=== PATIENT | male | born 1950 | race Caucasian/White ===

== ENCOUNTER → 2022-11-29 | Outpatient (CLI) | payer MEDICARE | END | disposition home or self-care (01) | LOC: SHCH 14:53 | PROVIDERS: ATTEND Internal Medicine Cardiovascular Disease | DX: R00.1 Bradycardia, unspecified (principal) | CPT/HCPCS: 93306 ==

== ENCOUNTER 2024-04-13 11:29 | Emergency (ER) | payer MEDICARE ==
[~2024-04-13] VITALS: Ht 182.9 cm; Wt 72.1 kg
[2024-04-13 12:15] LABS: BASOPHILS # (AUTO) 0.05 K/uL (0.00-0.20); BASOPHILS % (AUTO) 0.6 % (0.0-5.0); EOSINOPHILS # (AUTO) 0.67 K/uL (0.00-0.70); EOSINOPHILS % (AUTO) 8.6 % (0.0-8.0); HEMATOCRIT 47.1 % (42-54); IMMATURE GRANULOCYTE ABSOLUTE 0.06 K/uL (0-1); LYMPHOCYTES # (AUTO) 1.8 K/uL (1.0-4.8); MEAN CORPUSCULAR HEMOGLOBIN 29.8 pg (27.0-33.0); MEAN CORPUSCULAR HGB CONC 35.7 g/dL (32.0-36.0); MEAN CORPUSCULAR VOLUME 83.5 fL (79-99); MONOCYTES # (AUTO) 0.7 K/uL (0.1-1.0); MONOCYTES % (AUTO) 8.5 % (3.0-13.0); NEUTROPHILS # (AUTO) 4.6 K/uL (1.8-7.7); NEUTROPHILS % (AUTO) 58.5 % (40.0-77.0); PLATELET COUNT (AUTO) 163 K/uL (130-400); RED BLOOD CELL COUNT(AUTO) 5.64 MIL/uL (4.50-6.20); RED CELL DISTRIBUTION WIDTH 12.2 % (11.0-15.5); WHITE BLOOD COUNT (AUTO) 7.8 K/uL (4.8-10.8)
[2024-04-13 12:35] LABS: CREATININE 1.5 mg/dL (0.5-1.3); POTASSIUM 3.9 mmol/L (3.5-5.1)
[2024-04-13 12:43] LABS: APPEARANCE,URINE CLEAR (CLEAR); BILIRUBIN,URINE NEGATIVE (NEGATIVE); COLOR,URINE COLORLESS (YELLOW); GLUCOSE, URINE (UA) >=1000 mg/dL (NEGATIVE); KETONES,URINE NEGATIVE (NEGATIVE); LEUKOCYTE ESTERASE ,URINE NEGATIVE Leu/uL (NEGATIVE); NITRATE,URINE NEGATIVE (NEGATIVE); OCCULT BLOOD,URINE NEGATIVE (NEGATIVE); PROTEIN,URINE NEGATIVE (NEGATIVE); UROBILINOGEN,URINE 0.2 mg/dL (0.2-1.0)
[2024-04-13 12:44] LABS: ADD UA MICROSCOPIC YES
[2024-04-13 12:45] LABS: RBC,URINE 0-1 /HPF (0-1); WBC,URINE 0-1 /HPF (0-1)
[2024-04-13 13:21] VITALS: BP 137/74; PULSE 52; RESP 17; O2SAT 99
== END 2024-04-13 13:27 | disposition home or self-care (01) ==
LOC: EDH 11:29
DX: R53.1 Weakness (principal); R53.83 Other fatigue; I10 Essential (primary) hypertension; E11.9 Type 2 diabetes mellitus without complications; Z98.890 Other specified postprocedural states
CPT/HCPCS: 36415; 71045; 80048; 81001; 82550; 84484; 85025

== ENCOUNTER 2024-04-21 15:36 | Emergency (ER) | payer MEDICARE ==
[~2024-04-21] VITALS: Ht 182.9 cm; Wt 76.7 kg
[2024-04-21 16:48] LABS: BASOPHILS # (AUTO) 0.05 K/uL (0.00-0.20); BASOPHILS % (AUTO) 0.7 % (0.0-5.0); EOSINOPHILS # (AUTO) 0.76 K/uL (0.00-0.70); EOSINOPHILS % (AUTO) 10.4 % (0.0-8.0); IMMATURE GRANULOCYTE ABSOLUTE 0.04 K/uL (0-1); LYMPHOCYTES # (AUTO) 2.1 K/uL (1.0-4.8); LYMPHOCYTES % (AUTO) 28.1 % (21.0-51.0); MEAN CORPUSCULAR HGB CONC 35.1 g/dL (32.0-36.0); MEAN CORPUSCULAR VOLUME 85.4 fL (79-99); MONOCYTES # (AUTO) 0.7 K/uL (0.1-1.0); MONOCYTES % (AUTO) 9.9 % (3.0-13.0); NEUTROPHILS # (AUTO) 3.7 K/uL (1.8-7.7); NEUTROPHILS % (AUTO) 50.4 % (40.0-77.0); PLATELET COUNT (AUTO) 142 K/uL (130-400); RED CELL DISTRIBUTION WIDTH 12.1 % (11.0-15.5); WHITE BLOOD COUNT (AUTO) 7.3 K/uL (4.8-10.8)
[2024-04-21 17:13] LABS: CREATININE 1.4 mg/dL (0.5-1.3); POTASSIUM 3.6 mmol/L (3.5-5.1)
[2024-04-21 17:19] LABS: B-TYPE NATRIURETIC PEPTIDE 13 pg/mL (0-100)
[2024-04-21 17:27] LABS: ALBUMIN 3.5 g/dL (3.5-5.0); BILIRUBIN,DIRECT 0.1 mg/dL (0.0-0.3); BILIRUBIN,TOTAL 0.4 mg/dL (0.2-1.0); TOTAL PROTEIN, SERUM 6.2 g/dL (6.0-8.3)
[2024-04-21 17:43] VITALS: BP 175/80; PULSE 48; RESP 16; O2SAT 98
== END 2024-04-21 17:48 | disposition home or self-care (01) ==
LOC: EDH 15:36
DX: R00.1 Bradycardia, unspecified (principal); I10 Essential (primary) hypertension; E11.9 Type 2 diabetes mellitus without complications; E78.00 Pure hypercholesterolemia, unspecified; Z90.89 Acquired absence of other organs
CPT/HCPCS: 36415; 71045; 80048; 80076; 83880; 84484; 85025; 93005

== ENCOUNTER 2024-09-07 10:26 | Observation (INO) | payer MEDICARE ==
[~2024-09-07] VITALS: Ht 182.9 cm; Wt 75.3 kg
[2024-09-07 10:50] LABS: BASOPHILS # (AUTO) 0.05 K/uL (0.00-0.20); BASOPHILS % (AUTO) 0.6 % (0.0-5.0); EOSINOPHILS # (AUTO) 0.61 K/uL (0.00-0.70); EOSINOPHILS % (AUTO) 6.9 % (0.0-8.0); HEMATOCRIT 42.8 % (42-54); IMMATURE GRANULOCYTE ABSOLUTE 0.04 K/uL (0-1); LYMPHOCYTES # (AUTO) 1.5 K/uL (1.0-4.8); LYMPHOCYTES % (AUTO) 16.8 % (21.0-51.0); MEAN CORPUSCULAR HEMOGLOBIN 30.5 pg (27.0-33.0); MEAN CORPUSCULAR HGB CONC 34.3 g/dL (32.0-36.0); MEAN CORPUSCULAR VOLUME 88.8 fL (79-99); MONOCYTES # (AUTO) 0.8 K/uL (0.1-1.0); MONOCYTES % (AUTO) 8.5 % (3.0-13.0); NEUTROPHILS # (AUTO) 5.9 K/uL (1.8-7.7); NEUTROPHILS % (AUTO) 66.7 % (40.0-77.0); PLATELET COUNT (AUTO) 143 K/uL (130-400); RED BLOOD CELL COUNT(AUTO) 4.82 MIL/uL (4.50-6.20); WHITE BLOOD COUNT (AUTO) 8.8 K/uL (4.8-10.8)
--- NOTE | 2024-09-07 10:54 | EKG ---
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
[2024-09-07 10:59] LABS: CREATININE 1.6 mg/dL (0.5-1.3); POTASSIUM 3.6 mmol/L (3.5-5.1)
--- NOTE | 2024-09-07 11:14 | ERN ---
General Chief Complaint: Dizzy/Light Headed Stated Complaint: SENT BY DR. BAIN Time Seen by MD: 10:26 History of Present Illness Initial Comments 74-year-old male presents for dizziness and lightheadedness. He reports he has been feeling it for awhile (months) but it has been worsening recently. He does feel mild dyspnea. No chest pain. He has had no focal neurologic deficits. He was going to have a stress test and carotid ultrasounds done by Dr. Lawson as an outpatient, but has had difficulty coordinating these. No fevers, productive cough, or other systemic symptom. Patient does have a history of bradycardia. He has discuss getting a pacemaker with Dr. Lawson. They are pending a stress test currently. Medical history: Diabetes, hypertension, dyslipidemia, seizure disorder, Alzheimer's disease Allergies: Coded Allergies: No Known Drug Allergies (Unverified Allergy, Unknown, 06/11/22) Past Medical History Past Medical History: CAD, Diabetes-Type II, High Cholesterol, Heart Disease, Hypertension Medical History Other: CKD STAGE 3, CHRONIC BRADYCARDIA Past Surgical History: Other Surgical History Other: BILATERAL SHOULDER Social History Social History: Other ROS Dictation CONSTITUTIONAL: No chills, no fever, no weakness, no diaphoresis, no malaise. HEAD/FACE: No signs of trauma. EENT: No eye pain, no blurred vision, no tearing, no double vision, no ear pain, no ear discharge, no nose pain, no nasal congestion, no throat pain, no throat swelling, no mouth pain. RESPIRATORY: Mild dyspnea on exertion CARDIOVASCULAR: No chest pain, no edema, no palpitations, no syncope. GASTROINTESTINAL/ABDOMINAL: No abdominal pain, no constipation, no diarrhea, no nausea, no vomiting. GENITOURINARY: No abnormal discharge, no dysuria, no frequent urination, no hematuria. No complaints of pain in the genitals. MUSCULOSKELETAL: No back pain, no gout, no joint pain, no joint swelling, no muscle pain, no muscle stiffness, no neck pain. INTEGUMENTARY: No change in color, no change in hair/nails, no dryness, no lesion, no lumps, no rash. NEUROLOGICAL/PSYCH: Dizziness and lightheadedness HEMATOLOGIC/LYMPHATIC: Not anemic, no history of blood clots, no apparent bleeding, no bruising, glands not swollen. All Systems Negative, Except as Noted. Physical Exam Physical Exam Dictation VITAL SIGNS: Reviewed. GENERAL APPEARANCE: Alert, oriented x3, no acute distress HEAD AND FACE: Non-traumatic. EYES: PERRL, pink conjunctivas, eyelid no trauma, anterior chamber clear. EARS: Pinnas intact and no signs of trauma or erythema. Ear canals clear and no discharge. TMs no erythema. NOSE: No discharge, no bleeding. OROPHARYNX: Mouth normal, teeth no caries, tongue pink. Pharynx clear, no erythema. Tonsils no exudates, no abscesses noted. Mucous membrane moist. NECK: Supple, non-tender, no thyromegaly, no masses, no JVD, no bruits. BREAST: Deferred. CHEST: No tenderness, no crepitus, no paradoxical movement, no retractions. LUNGS: Clear, well-ventilated, symmetric, no rales, no wheezing, no rhonchi, no stridor, good breath sounds bilaterally. HEART: Regular rate, regular rhythm, no murmur, no gallops. VASCULAR: No peripheral edema. ABDOMEN: Soft, positive bowel sounds, nondistended, no guarding, nontender, no rebound, no masses no hepatomegaly, no splenomegaly, no Elena's sign, no hernias. RECTAL: Deferred. GENITAL: Deferred. NEUROLOGICAL: Normal speech, gross motor function intact, gross sensory function intact. MUSCULOSKELETAL: Neck nontender, full range of motion, back nontender, full range of motion. EXTREMITIES: Nontender, full range of motion. SKIN: Color pink, dry, no turgor, no rash, no lacerations, no abrasions, no contusions. LYMPHATICS: Deferred. Results Laboratory and Microbiology Lab and Micro Result Laboratory Tests Test 09/07/24 10:44 White Blood Count 8.8 K/uL (4.8-10.8) Red Blood Count 4.82 MIL/uL (4.50-6.20) Hemoglobin 14.7 g/dL (14.0-18.0) Hematocrit 42.8 % (42-54) Mean Corpuscular Volume 88.8 fL (79-99) Mean Corpuscular Hemoglobin 30.5 pg (27.0-33.0) Mean Corpuscular Hemoglobin Concent 34.3 g/dL (32.0-36.0) Red Cell Distribution Width 12.0 % (11.0-15.5) Platelet Count 143 K/uL (130-400) Mean Platelet Volume 10.3 fL (7.5-10.5) Immature Granulocyte % (Auto) 0.5 % (0-1) Neutrophils (%) (Auto) 66.7 % (40.0-77.0) Lymphocytes (%) (Auto) 16.8 % (21.0-51.0) L Monocytes (%) (Auto) 8.5 % (3.0-13.0) Eosinophils (%) (Auto) 6.9 % (0.0-8.0) Basophils (%) (Auto) 0.6 % (0.0-5.0) Neutrophils # (Auto) 5.9 K/uL (1.8-7.7) Lymphocytes # (Auto) 1.5 K/uL (1.0-4.8) Monocytes # (Auto) 0.8 K/uL (0.1-1.0) Eosinophils # (Auto) 0.61 K/uL (0.00-0.70) Basophils # (Auto) 0.05 K/uL (0.00-0.20) Absolute Immature Granulocyte (auto 0.04 K/uL (0-1) Nucleated Red Blood Cells 0.0 % (0.0-0.19) Sodium Level 144 mmol/L (136-145) Potassium Level 3.6 mmol/L (3.5-5.1) Chloride Level 107 mmol/L (101-111) Carbon Dioxide Level 32 mmol/L (21-32) Blood Urea Nitrogen 19 mg/dL (7-18) H Creatinine 1.6 mg/dL (0.5-1.3) H Glomerular Filtration Rate Calc 44 mL/min (>90) Random Glucose 144 mg/dL (70-105) H Total Calcium 8.9 mg/dL (8.5-10.1) Total Creatine Kinase 280 U/L (21-232) #H Troponin I High Sensitivity 10 ng/L (4-75) MDM CC: Dizziness and lightheadedness Historian: Patient provided some history, but helped since the patient has early Alzheimer's disease Comorbidities: Advanced age, diabetes, hypertension, dyslipidemia, seizure disorder, Alzheimer's disease Initial concern for ACS, arrhythmia, stroke, dehydration, electrolyte abnormality, other. EKG: sinus bradycardia, rate 43, normal axis, good RWP, intervals stable, LVH, no STEMI, interpreted by me. Vital signs: Bradycardic heart rate of 42. Otherwise stable. CBC: Normal. Troponin normal. BNP normal. Electrolytes stable. Electrolytes stable. Creatinine 1.6, baseline for patient based on previous labs. Troponin stable BNP stable. CXR:: No focal infiltrates or cardiomegaly per my independent interpretation. Will admit for further treatment & evaluation. Consultation: hospitalist for admission ED Course Orders Procedure Category Date Status Time Cbc With Differential LAB 09/07/24 In Process 10:29 B-Type Natriuretic LAB 09/07/24 In Process Peptide 10:29 Chest 1vw RAD 09/07/24 Taken 10:29 12 Lead Ekg Tracing- EKG 09/07/24 Complete Technical 10:29 Creatine Kinase, Total LAB 09/07/24 Complete 10:29 Troponin I High LAB 09/07/24 Complete Sensitivity 10:29 Basic Metabolic Panel LAB 09/07/24 Complete 10:29 Urinalysis Profile LAB 09/07/24 Logged 10:29 Ct Head/Brain W/O CT 09/07/24 Logged Contrast 11:09 Vital Signs Date Time Temp Pulse Resp B/P (MAP) Pulse Ox O2 Delivery O2 Flow Rate FiO2 09/07/24 10:26 97.5 42 20 154/64 99 Room Air 0 DX & DISP Disposition: Inpatient Departure Impression: Primary Impression: Light-headed Additional Impression: Bradycardia Condition: Stable Referrals: DELILAH CHRISTIANSON MD (PCP) EDU QUEEN DO Sep 07, 2024 11:14
--- NOTE | 2024-09-07 12:06 | HMCIMG ---
CHEST 1VW REASON: chest pain COMPARISON: 04/21/2024 FINDINGS: Single view of the chest was obtained. Lungs are clear. Heart size is normal. There is no pulmonary vascular congestion. Mediastinum and bony thorax appear unremarkable. IMPRESSION: 1. Normal single view chest x-ray.
[2024-09-07 12:20] LABS: B-TYPE NATRIURETIC PEPTIDE 12 pg/mL (0-100)
--- NOTE | 2024-09-07 12:30 | NUR ---
PT JUST NOW PLACED IN MY ED BED 12. ASSUMED PT CARE AT THIS TIME.
[2024-09-07 12:37] LABS: APPEARANCE,URINE CLEAR (CLEAR); BILIRUBIN,URINE NEGATIVE (NEGATIVE); COLOR,URINE LIGHT-YELLOW (YELLOW); GLUCOSE, URINE (UA) >=1000 mg/dL (NEGATIVE); KETONES,URINE NEGATIVE (NEGATIVE); LEUKOCYTE ESTERASE ,URINE NEGATIVE Leu/uL (NEGATIVE); NITRATE,URINE NEGATIVE (NEGATIVE); OCCULT BLOOD,URINE NEGATIVE (NEGATIVE); PH,URINE 6.5 (5.0-8.0); PROTEIN,URINE NEGATIVE (NEGATIVE); UROBILINOGEN,URINE 0.2 mg/dL (0.2-1.0)
--- NOTE | 2024-09-07 12:40 | HMCIMG ---
Exam: NONCONTRAST CT BRAIN REASON: lightheadedness. COMPARISON: 08/11/2022 TECHNIQUE: Images are obtained from vertex to the skull base. The exam was performed without IV contrast. FINDINGS: There are generous ventricles and sulci. There is decreased attenuation in the deep central white matter. These findings are consistent with atrophy. There are no acute appearing focal parenchymal lesions. There is no evidence of mass, intracranial hemorrhage or acute stroke. Posterior fossa and brainstem structures appear unremarkable. There are no abnormal fluid collections. Extra cranial soft tissues appear unremarkable as well. IMPRESSION: 1. Atrophy, mild, no acute finding. CT was performed with one or more following dose reduction techniques: automated exposure control, adjustment of the mA and kv according to patient's size, or use of a iterative reconstruction technique.
[2024-09-07 12:45] LABS: ADD UA MICROSCOPIC YES
[2024-09-07 12:46] LABS: WBC,URINE 0-1 /HPF (0-1)
--- NOTE | 2024-09-07 13:34 | NUR ---
NEERAJ MANRIQUE JUST COMPLETED HER EXAM ON THE PT.
--- NOTE | 2024-09-07 13:34 | NUR ---
MEDICATION RECONCILIATION: PT TO ASK HIS SPOUSE TO BRING IN HIS HOME MEDS.
--- NOTE | 2024-09-07 13:40 | NUR ---
PEGGY MENDIETA HERE TO SEE THE PT.
[2024-09-07] MEDS ORDERED: [UNRECOGNIZED DRUG - CODE] PO ×2 (13:50)
[2024-09-07] MEDS ORDERED: IRBE150T34 PO (13:50)
[2024-09-07] MEDS ORDERED: EMPA10TA PO (13:50)
[2024-09-07] MEDS ORDERED: EZET10TA48 PO (13:50)
[2024-09-07] MEDS ORDERED: LEVE250T2 PO (13:50)
[2024-09-07] MEDS ORDERED: ROSU40TA88 PO (13:50)
--- NOTE | 2024-09-07 13:50 | NUR ---
MED RECONCILIATION: COMPLETE
--- NOTE | 2024-09-07 14:23 | HMCIMG ---
US CAROTID DUPLEX REASON: dizziness, lightheaded TECHNIQUE: Exam was performed using spectral analysis and color flow imaging. FINDINGS: Color flow Doppler ultrasound shows normal-appearing bifurcations. There is no anatomic evidence of significant focal narrowing. Flow velocities and velocity ratios appear normal throughout. There is antegrade flow in both vertebral arteries. There is elevated flow velocity in the left subclavian artery at 300 cm/s suggesting stenosis. RIGHT CAROTID: CCA: 80 cm/sec ICA: 82 cm/sec Ratio: ICA/CCA: 1 ECA: 131 cm/sec Vertebral artery: 49 cm/sec LEFT CAROTID: CCA: 110 cm/sec ICA: 107 cm/sec Ratio: ICA/CCA: 1.0 ECA: 123 cm/sec Vertebral artery: 61 cm/sec IMPRESSION: 1. Normal bilateral carotid Doppler ultrasound. 2. Probable subclavian artery stenosis, vertebral artery flow direction is normal but with a presteal pattern on the left.
[2024-09-07] MEDS ORDERED: ketOROlac 15MG/ML VIAL (15MG/ML) IV PRN (14:30)
[2024-09-07] MEDS ORDERED: PoTASSium chl 10% ELIXIR 20MEQ 20 MEQ/15 ML UDCUP PO PRN (14:30)
[2024-09-07] MEDS ORDERED: DEXTROSE 50%-WATER 50 ML DISP.SYRIN IV PRN (14:30)
[2024-09-07] MEDS ORDERED: FAMOTIDINE 20MG VIAL IV PRN (14:30)
[2024-09-07] MEDS ORDERED: acetaMINOPHEN 325 MG TAB PO PRN ×3 (14:30)
[2024-09-07] MEDS ORDERED: NITROGLYCERIN 0.4 MG SL TAB SL PRN (14:30)
[2024-09-07] MEDS ORDERED: DiphenhydrAMINE HCL 50 MG/ML VIAL IV PRN (14:30)
[2024-09-07] MEDS ORDERED: ondanSETRON 4MG INJ IV PRN (14:30)
[2024-09-07] MEDS ORDERED: MAG/ALUM/SIMETH 30 ML UDCUP PO PRN (14:30)
[2024-09-07] MEDS ORDERED: GLUCAGON 1MG KIT 1 MG ML IM PRN (14:30)
[2024-09-07] MEDS ORDERED: PoTASSium chloRIDE 10MEQ/100ML 100 ML IV PRN (14:30)
[2024-09-07] MEDS ORDERED: MAGNESIUM 2GM PREMIX 50ML 50 ML IV PRN (14:30)
[2024-09-07] MEDS ORDERED: LACTULOSE 20 GM/30 ML UDCUP PO PRN (14:30)
[2024-09-07] MEDS ORDERED: PoTASSium chloRIDE 20MEQ ER 20 MEQ ERTAB PO PRN (14:30)
[2024-09-07] MEDS ORDERED: ZOLPidem TARTrate 5 MG TAB PO PRN (14:30)
[2024-09-07] MEDS ORDERED: hydrALAZine 20MG/ML VIAL IV PRN (14:30)
[2024-09-07] MEDS ORDERED: guaiFENesin-DM 200/20MG 10ML PO PRN (14:30)
--- NOTE | 2024-09-07 14:32 | HP ---
[facility]ORY [facility] PHYSICAL Date of Service: Sep 07, 2024 Time of Service: 14:31 PCP: Dr Car[facility] Admitting: Dr Berumen, Allergies: No Allergy Information Available, No Known Drug Allergies HISTORY OF PRESENT ILLNESS: [Patient was years diabetes, department for evaluation lightheadedness. Patient stated that for the past few months he has been feeling very weak and his ADLs has worsened recently. He denies any chest pain, nausea, vomiting or any discomfort otherwise. Patient was going to have a stress test and carotid ultrasound done by Dr. Morrison as outpatient but he had difficulty coordinating these radiology test. Patient was sent by Dr. Morrison for history of bradycardia possible pacemaker insertion.] Most recent vital signs temperature 98.8 pulse 42 respiration 18 blood pressure 143/62 patient is on room air satting 98%. Sodium 144 potassium 3.6 CO2 32 BUN 19 creatinine 1.6 GFR 44 CK 280 troponin negative x1 BNP 12. Urinalysis negative for leukocytosis or nitrates. WBC 8.8 hemoglobin 14.7 hematocrit 42.8 platelets 143. Chest x-ray 09/07/[address] 09/07/2020 negative. Patient is pending carotid ultrasound. 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 Further plan was explained to the patient and agrees with the goals. A.m. labs. REVIEW OF SYSTEMS CONSTITUTIONAL: Denies fevers, chills, or night sweats. No unintentional weight loss reported. NEUROLOGICAL: Denies headache, amaurosis fugax, motor weakness, sensory deficit, vertigo/spinning sensation, gait abnormalities, or tremors. ENT: No hearing loss, otalgia, otorrhea, rhinitis, rhinorrhea, hoarseness, or sore throat. CARDIOVASCULAR: Denies any exertional angina, dyspnea on exertion, orthopnea, paroxysmal nocturnal dyspnea, palpitations, life-threatening arrhythmias, mary kay dication. PULMONARY: Denies any shortness of breath, cough, phlegm/sputum, hemoptysis, pleuritic chest pain. SLEEP: Denies morning headaches, daytime somnolence or napping. Denies difficulty falling asleep, staying asleep, waking from sleep. Denies knowledge of snoring. GASTROINTESTINAL: Denies any type of dysphagia to either liquids or solids. Denies nausea, vomiting, pyrosis, early satiety, abdominal pain, diarrhea, constipation, or changes in stool consistency or caliber. Denies coffee-ground emesis, hematemesis, hematochezia, or melanotic stools. GENITOURINARY: Denies frequency, urgency, nocturia, hematuria or incontinence (Storage/Irritative symptoms.) Low urinary stream, straining to void, urinary intermittency or hesitancy, splitting of the voiding stream, terminal dribbling. ENDOCRINOLOGIC: Denies polyuria, polydipsia, polyphagia or heat/cold intolerances. HEMATOLOGIC: Denies thrombophilia/previous clots, or coagulopathy/bleeding disorders. ONCOLOGIC: Denies personal history of malignancy. DERMATOLOGIC: Denies rashes or pruritus. PSYCHIATRIC: Denies any suicidal or homicidal ideation. Denies hallucinations. PAST MEDICAL HISTORY: [ Hypertension, hyperlipidemia, seizures, COVID-19, diabetes, Alzheimer ] PAST SURGICAL HISTORY: [ Tonsillectomy] PAST SOCIAL HISTORY: [ Put smoking more than 10 years ago, quit drinking about 10 years ago, denies any drug illicit ] FAMILY HISTORY: [ Lives at home with the family members/] Coded Allergies: No Known Drug Allergies (Unverified Allergy, Unknown, 06/11/22) PHYSICAL EXAM GENERAL APPEARANCE: The patient is awake, alert, and oriented, in no acute cardiopulmonary distress. NEUROLOGICAL: Cranial nerves II-XII grossly intact. Motor is 5/5 in bilateral upper and lower extremities proximal to distal. No sensory deficits. HEENT: Face is symmetric. Pupils are equal and reactive. Extraocular movements are intact. NECK: Supple. No JVD. No thyromegaly. No submental, submandibular, pre- /postauricular, occipital or supraclavicular lymphadenopathy. CHEST: Normal chest expansion. No Telemetry. LUNGS: Absence of any rales, rhonchi or any wheezing. CARDIOVASCULAR: Regular. S1 and S2 normal. No appreciable rubs, murmurs or gallops. ABDOMEN: Soft, nontender, and nondistended. There is no rebound, voluntary guarding, or rigidity. : Deferred. No Capps. EXTREMITIES: Non-edematous and not cyanotic. No clubbing. Good capillary refill. SKIN: No skin breakdown. Vital Sign (Last 24 Hours) 09/07/24 11:47 Temp 98.8 Pulse 42 Resp 18 B/P (MAP) 143/62 Pulse Ox 98 O2 Delivery Room Air* O2 Flow Rate 0 FiO2 21 LABS: Laboratory: Test 09/07/24 12:30 09/07/24 10:44 Range/Units Urine Color LIGHT-YELLOW YELLOW Urine Appearance CLEAR CLEAR Urine pH 6.5 5.0-8.0 Urine Specific [place] 1.025 1.001-1.031 Urine Protein NEGATIVE NEGATIVE mg/dL Urine Glucose (UA) >=1000 H NEGATIVE mg/dL Urine Ketones NEGATIVE NEGATIVE mg/dL Urine Occult Blood NEGATIVE NEGATIVE Urine Nitrate NEGATIVE NEGATIVE Urine Bilirubin NEGATIVE NEGATIVE mg/dL Urine Urobilinogen 0.2 0.2-1.0 mg/dL Urine Leukocyte Esterase NEGATIVE NEGATIVE Amrit/uL Urine RBC None 0-1 /HPF Urine WBC 0-1 0-1 /HPF Urine Bacteria None None Seen /HPF White Blood Count 8.8 4.8-10.8 K/uL Red Blood Count 4.82 4.50-6.20 MIL/uL Hemoglobin 14.7 14.0-18.0 g/dL Hematocrit 42.8 42-54 % Mean Corpuscular Volume 88.8 79-99 fL Mean Corpuscular Hemoglobin 30.5 27.0-33.0 pg Mean Corpuscular Hemoglobin Concent 34.3 32.0-36.0 g/dL Red Cell Distribution Width 12.0 11.0-15.5 % Platelet Count 143 130-400 K/uL Mean Platelet Volume 10.3 7.5-10.5 fL Immature Granulocyte % (Auto) 0.5 0-1 % Neutrophils (%) (Auto) 66.7 40.0-77.0 % Lymphocytes (%) (Auto) 16.8 L 21.0-51.0 % Monocytes (%) (Auto) 8.5 3.0-13.0 % Eosinophils (%) (Auto) 6.9 0.0-8.0 % Basophils (%) (Auto) 0.6 0.0-5.0 % Neutrophils # (Auto) 5.9 1.8-7.7 K/uL Lymphocytes # (Auto) 1.5 1.0-4.8 K/uL Monocytes # (Auto) 0.8 0.1-1.0 K/uL Eosinophils # (Auto) 0.61 0.00-0.70 K/uL Basophils # (Auto) 0.05 0.00-0.20 K/uL Absolute Immature Granulocyte (auto 0.04 0-1 K/uL Nucleated Red Blood Cells 0.0 0.0-0.19 % Sodium Level 144 136-145 mmol/L Potassium Level 3.6 3.5-5.1 mmol/L Chloride Level 107 101-111 mmol/L Carbon Dioxide Level 32 21-32 mmol/L Blood Urea Nitrogen 19 H 7-18 mg/dL Creatinine 1.6 H 0.5-1.3 mg/dL Glomerular Filtration Rate Calc 44 >90 mL/min Random Glucose 144 H 70-105 mg/dL Total Calcium 8.9 8.5-10.1 mg/dL Total Creatine Kinase 280 #H 21-232 U/L Troponin I High Sensitivity 10 4-75 ng/L B-Type Natriuretic Peptide 12 0-100 pg/mL Current Medications Medications (Trade) Dose Ordered Sig/Claudine Route PRN Reason Start Time Stop Time Status Last Admin Dose Admin Acetaminophen (TYLenol 325MG TAB) 650 mg Q4H PRN PO MILD PAIN (1-3) 09/07/24 14:30 10/07/24 14:29 Acetaminophen (TYLenol 325MG TAB) 650 mg Q6H PRN PO MILD PAIN (1-3) 09/07/24 14:30 09/07/24 14:29 DC Acetaminophen (TYLenol 325MG TAB) 650 mg Q6H PRN PO TEMPERATURE GREATER THAN 101.5 09/07/24 14:30 10/07/24 14:29 Al Hydroxide/Mg Hydroxide (MAALox PLUS 30ML) 30 ml Q6H PRN PO INDIGESTION 09/07/24 14:30 10/07/24 14:29 Atorvastatin Calcium (LIPItor 40MG) 80 mg HS PO 09/07/24 21:00 10/07/24 20:59 Dextrose (D50w) 50 ml AD PRN IV HYPOGLYCEMIA PROTOCOL 09/07/24 14:30 10/07/24 14:29 Diphenhydramine HCl (BENAdryl INJ) 25 mg Q6H PRN IV SEVERE ITCHING/RASH 09/07/24 14:30 10/07/24 14:29 EZETIMIBE (Zetia) 10 mg DAILY PO 09/08/24 09:00 10/08/24 08:59 Famotidine (Pepcid 20mg Vial) 20 mg BID IV 09/07/24 21:00 10/07/24 20:59 UNV Famotidine (Pepcid 20mg Vial) 20 mg BID PRN IV NAUSEA/VOMITING 09/07/24 14:30 09/07/24 14:29 DC Glucagon (Glucagon 1mg Kit) 1 mg AD PRN IM HYPOGLYCEMIA PROTOCOL 09/07/24 14:30 10/07/24 14:29 Guaifenesin/ Dextromethorphan (RobiTUSSin DM 200/20MG 10ML) 10 ml Q4H PRN PO COUGH 09/07/24 14:30 10/07/24 14:29 Heparin Sodium (Porcine) (HEParin 5,000 UNIT VIAL) 5,000 unit BID SQ 09/07/24 21:00 10/07/24 20:59 Home Med (Home Medication) (Irbesartan 150 MG) PM PO 09/07/24 21:00 10/07/24 20:59 Hydralazine HCl (APRESOLine 20MG INJ) 10 mg Q6H PRN IV For:SBP above 160;DBP above 90 09/07/24 14:30 10/07/24 14:29 UNV Insulin Human Regular (humuLIN R 100 UNIT/ML 3ML) INSULIN SLIDING SCAL... ACHS SQ 09/07/24 16:30 10/07/24 16:29 Ketorolac Tromethamine (toRADol) 15 mg Q8H PRN IV MODERATE PAIN (4-6) 09/07/24 14:30 09/12/24 14:29 UNV Lactulose (Constulose 20gm/ 30ml Udcup) 20 gm BID PRN PO CONSTIPATION 09/07/24 14:30 10/07/24 14:29 Levetiracetam (kepPRA 250 MG TABLET) 250 mg PM PO 09/07/24 21:00 10/07/24 20:59 Magnesium Sulfate 50 ml @ 0 mls/hr PROTOCOL PRN IV other 09/07/24 14:30 10/07/24 14:29 Nitroglycerin (Nitrostat) 0.4 mg PROTOCOL PRN SL CHEST PAIN 09/07/24 14:30 10/07/24 14:29 Ondansetron HCl (zoFRAN 4MG INJ) 4 mg Q6H PRN IV NAUSEA/VOMITING 09/07/24 14:30 10/07/24 14:29 Potassium Chloride 100 ml @ 100 mls/hr AD PRN IV POTASSIUM PROTOCOL 09/07/24 14:30 10/07/24 14:29 Potassium Chloride (K-Dur/Klor-Con 20meq) 10 meq AD PRN PO POTASSIUM PROTOCOL 09/07/24 14:30 10/07/24 14:29 Potassium Chloride (KCl 10% Elixir 20meq/15ml) 10 meq AD PRN PO POTASSIUM PROTOCOL 09/07/24 14:30 10/07/24 14:29 Sodium Chloride 1,000 ml @ 60 mls/hr [id number] IV 09/07/24 14:30 10/07/24 14:29 UNV Zolpidem Tartrate (AmbIEN) 5 mg HS PRN PO INSOMNIA 09/07/24 14:30 10/07/24 14:29 DIAGNOSTICS / RADIOLOGY: [ ] ASSESSMENT: [ Symptomatic bradycardia requiring pacemaker placement by Cardiology POA Uncontrolled diabetes mellitus type 2 with hypoglycemia POA Uncontrolled hypertension Acute dehydration POA mild rhabdomyolysis CK 280 POA Seizures POA Alzheimer disease POA Hyperlipidemia POA History of COVID-19 11/29/2023 EF 60 65% normal diastolic function 2D echo History of tonsillectomy History of smoking quit more than 10 years ago POA ] PLAN: [ Admit to: PCCU 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 Fall Precautions. Well lighted room through the day and minimize interruptions through the night to prevent acute delirium. PULMONARY: Supplemental 02 as needed BiPAP as necessary, for respiratory distress Titrate Fio2 to keep Spo2 > or = 90% DuoNebs and CPT as needed IS hourly while awake for pulmonary hygiene Out of bed to chair as tolerated VAP Bundle Maintain aspiration precautions at all times CARDIOVASCULAR: Follow hemodynamics. Vital signs per facility protocol GI & NUTRITION: Continue nutritional support Aspirations precautions Prokinetic agents and laxatives as needed KIDNEYS & ELECTROLYTES: Strict monitoring of intake and output Daily weights Avoid nephrotoxic agents Monitor electrolytes and replace as needed Goal urine output of 30mL/hr or 0.5mL/kg/hr Medications to be dosed according to renal function. Avoid contrast if possible ENDOCRINE: Maintain blood glucose between 100-180 at all times. Insulin sliding scale for blood glucose management Hypoglycemia and hyperglycemia protocol in place INFECTIOUS DISEASE: Trend temperature, WBC and procalcitonin level Follow cultures, deescalate antibiotics as soon as possible. Panculture if new onset fever HEMATOLOGY & COAGULATION: Monitor H&H. Keep Hgb > 7 Transfuse 1 unit of PRBC for Hgb < 7 Transfuse 1 pack of platelets of platelets < 20, 000 Watch for any signs and symptoms of bleeding SKIN: Pressure ulcer prevention per facility protocol Specialty mattress as needed Treatment plan discussed with patient and family at the bedside Medications to be reconciled once obtained by patient and/or family and available to be reconciled in computer p.r.n. 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 Which of the following were discussed? Hospice Care - Yes / No Therapeutic options - Yes / No Advance Directives - Yes / No Other discussions - 2. Discussed with who? Patient 3. Voluntary nature of this service was explained to the patient? Yes / No 4. Amount of time spent - ___ more than 35 minutes ____ 5. Reviewed by Physician? (if this service was performed by NPP) Yes / No ATTESTATION BY PHYSICIAN I have seen and examined the patient. I reviewed the documentation, medical decision making, and treatment plan as noted by the mid-level provider above. I agree with the findings and plan of care. CAR BERUMEN MD, KATARZYNA B MORGAN [facility] Sep 07, 2024 14:32
[2024-09-07] MEDS ORDERED: PoTASSium chloRIDE 10MEQ SR 10 MEQ/TAB TAB.SR.24H PO PRN (15:00)
[2024-09-07] MEDS: INSULIN humuLIN R 100 UNIT/ML 3ML SQ SCH (16:30)
--- NOTE | 2024-09-07 17:44 | NUR ---
BED ASSIGNMENT: BED 222 ASSIGNED BY NIDHI DACOSTA RN
[2024-09-07] MEDS: 0.9%NACL 1000ML 1,000 ML IV SCH (18:02)
[2024-09-07 18:15] VITALS: O2SAT 100
--- NOTE | 2024-09-07 18:20 | NUR ---
REPORT ENDORSED TO YASSINE JONES
[2024-09-07 19:20] VITALS: BP 176/73; PULSE 41; RESP 18; TEMP 98
[2024-09-07] MEDS: IRBESARTAN 150 MG PO SCH (21:00)
[2024-09-07] MEDS: leveTIRACEtam 250 MG TABLET PO SCH (21:15)
[2024-09-07] MEDS: FAMOTIDINE 20MG VIAL IV SCH (21:15)
[2024-09-07] MEDS: atorVAStatin 40 MG TABLET PO SCH (21:16)
[2024-09-07] MEDS: HEParin 5,000 UNIT VIAL SQ SCH (21:21)
[2024-09-07 23:52] VITALS: BP 121/76; PULSE 40; RESP 18; TEMP 97.8
[2024-09-08 03:12] VITALS: BP 124/66; PULSE 38; RESP 18; TEMP 98
[2024-09-08 03:44] LABS: BASOPHILS # (AUTO) 0.04 K/uL (0.00-0.20); BASOPHILS % (AUTO) 0.7 % (0.0-5.0); EOSINOPHILS # (AUTO) 0.69 K/uL (0.00-0.70); EOSINOPHILS % (AUTO) 11.5 % (0.0-8.0); HEMATOCRIT 37.5 % (42-54); IMMATURE GRANULOCYTE ABSOLUTE 0.03 K/uL (0-1); LYMPHOCYTES # (AUTO) 1.7 K/uL (1.0-4.8); LYMPHOCYTES % (AUTO) 28.1 % (21.0-51.0); MEAN CORPUSCULAR HEMOGLOBIN 29.6 pg (27.0-33.0); MEAN CORPUSCULAR HGB CONC 34.1 g/dL (32.0-36.0); MEAN CORPUSCULAR VOLUME 86.6 fL (79-99); MONOCYTES # (AUTO) 0.6 K/uL (0.1-1.0); MONOCYTES % (AUTO) 9.5 % (3.0-13.0); NEUTROPHILS % (AUTO) 49.7 % (40.0-77.0); PLATELET COUNT (AUTO) 139 K/uL (130-400); RED BLOOD CELL COUNT(AUTO) 4.33 MIL/uL (4.50-6.20)
[2024-09-08 03:58] LABS: ALBUMIN 3.2 g/dL (3.5-5.0); BILIRUBIN,DIRECT 0.1 mg/dL (0.0-0.3); BILIRUBIN,TOTAL 0.5 mg/dL (0.2-1.0); CREATININE 1.5 mg/dL (0.5-1.3); MAGNESIUM 2.1 mg/dL (1.80-2.40); POTASSIUM 3.9 mmol/L (3.5-5.1); TOTAL PROTEIN, SERUM 5.7 g/dL (6.0-8.3)
[2024-09-08 07:00] VITALS: BP 134/70; PULSE 46; RESP 19; TEMP 98.4
--- NOTE | 2024-09-08 07:21 | NUR ---
ORDERS REQUEST MEDICAL RECORDS FROM [facility]. ENTER A CARDIOLOGY CONSULT FOR BRADYCARDIA.
[2024-09-08 08:48] LABS: THYROID STIMULATING HORMONE 3.19 uIU/mL (0.36-3.74)
[2024-09-08] MEDS: EZETIMIBE 10 MG TAB PO SCH (09:14)
--- NOTE | 2024-09-08 09:30 | NUR ---
CONSULT CALLED TO DR ADKINS.
--- NOTE | 2024-09-08 09:45 | PN ---
[facility] PROGRESS NOTE Date of Service: Sep 08, 2024 Time of Service: 09:[address] Modi SUBJECTIVE: [ [Patient is 74 years old male with a past medical history of diabetes, department for evaluation lightheadedness. Patient stated that for the past few months he has been feeling very weak and his ADLs has worsened recently. He denies any chest pain, nausea, vomiting or any discomfort otherwise. Patient was going to have a stress test and carotid ultrasound done by Dr. Morrison as outpatient but he had difficulty coordinating these radiology test. Patient was sent by Dr. Morrison for history of bradycardia possible pacemaker insertion.] Most recent vital signs temperature 98.8 pulse 42 respiration 18 blood pressure 143/62 patient is on room air satting 98%. Sodium 144 potassium 3.6 CO2 32 BUN 19 creatinine 1.6 GFR 44 CK 280 troponin negative x1 BNP 12. Urinalysis negative for leukocytosis or nitrates. WBC 8.8 hemoglobin 14.7 hematocrit 42.8 platelets 143. Chest x-ray 09/07/[address] 09/07/2020 negative. Patient is pending carotid ultrasound. S[facility] [place] Dr. Morrison was consulted by ER doctor. 09/08/24 patient was seen by nurse practitioner and physician during rounding in 10/27/2021 comfortably lying in bed. Carotid Doppler came back negative CT head brain negative. Patient continues to be bradycardia in the lowest of 47. We are pending for further evaluation of coffee attendant for possible pacemaker placement. Case management consulted for discharge disposition. We will continue to monitor patient in the meantime. A.m. labs.] REVIEW OF SYSTEMS CONSTITUTIONAL: Denies fevers, chills, or night sweats. No unintentional weight loss reported. NEUROLOGICAL: Denies headache, amaurosis fugax, motor weakness, sensory deficit, vertigo/spinning sensation, gait abnormalities, or tremors. ENT: No hearing loss, otalgia, otorrhea, rhinitis, rhinorrhea, hoarseness, or sore throat. CARDIOVASCULAR: Denies any exertional angina, dyspnea on exertion, orthopnea, paroxysmal nocturnal dyspnea, palpitations, life-threatening arrhythmias, claudication. PULMONARY: Denies any shortness of breath, cough, phlegm/sputum, hemoptysis, pleuritic chest pain. SLEEP: Denies morning headaches, daytime somnolence or napping. Denies difficulty falling asleep, staying asleep, waking from sleep. Denies knowledge of snoring. GASTROINTESTINAL: Denies any type of dysphagia to either liquids or solids. Denies nausea, vomiting, pyrosis, early satiety, abdominal pain, diarrhea, constipation, or changes in stool consistency or caliber. Denies coffee-ground emesis, hematemesis, hematochezia, or melanotic stools. GENITOURINARY: Denies frequency, urgency, nocturia, hematuria or incontinence ( Storage/Irritative symptoms.) Low urinary stream, straining to void, urinary intermittency or hesitancy, splitting of the voiding stream, terminal dribbling. ENDOCRINOLOGIC: Denies polyuria, polydipsia, polyphagia or heat/cold intolerances. HEMATOLOGIC: Denies thrombophilia/previous clots, or coagulopathy/bleeding disorders. ONCOLOGIC: Denies personal history of malignancy. DERMATOLOGIC: Denies rashes or pruritus. PSYCHIATRIC: Denies any suicidal or homicidal ideation. Denies hallucinations. PHYSICAL EXAM GENERAL APPEARANCE: The patient is awake, alert, and oriented, in no acute cardiopulmonary distress. NEUROLOGICAL: Cranial nerves II-XII grossly intact. Motor is 5/5 in bilateral upper and lower extremities proximal to distal. No sensory deficits. HEENT: Face is symmetric. Pupils are equal and reactive. Extraocular movements are intact. NECK: Supple. No JVD. No thyromegaly. No submental, submandibular, pre- /postauricular, occipital or supraclavicular lymphadenopathy. CHEST: Normal chest expansion. No Telemetry. LUNGS: Absence of any rales, rhonchi or any wheezing. CARDIOVASCULAR: Regular. S1 and S2 normal. No appreciable rubs, murmurs or gallops. ABDOMEN: Soft, nontender, and nondistended. There is no rebound, voluntary guarding, or rigidity. : Deferred. No Capps. EXTREMITIES: Non-edematous and not cyanotic. No clubbing. Good capillary refill. SKIN: No skin breakdown. Vital Signs (last 8hr) Date Time Temp Pulse Resp B/P (MAP) Pulse Ox O2 Delivery O2 Flow Rate FiO2 09/08/24 07:00 98.4 46 19 134/70 99 Room Air 09/08/24 03:12 98.1 38 18 124/66 98 Room Air LABS: Laboratory: Test 09/08/24 05:09 09/08/24 03:19 09/07/24 12:30 09/07/24 10:44 Range/Units Whole Blood Glucose 81 70-110 MG/DL White Blood Count 6.0 # 4.8-10.8 K/uL Red Blood Count 4.33 L 4.50-6.20 MIL/uL Hemoglobin 12.8 L 14.0-18.0 g/dL Hematocrit 37.5 L 42-54 % Mean Corpuscular Volume 86.6 79-99 fL Mean Corpuscular Hemoglobin 29.6 27.0-33.0 pg Mean Corpuscular Hemoglobin Concent 34.1 32.0-36.0 g/dL Red Cell Distribution Width 12.0 11.0-15.5 % Platelet Count 139 130-400 K/uL Mean Platelet Volume 10.7 H 7.5-10.5 fL Immature Granulocyte % (Auto) 0.5 0-1 % Neutrophils (%) (Auto) 49.7 40.0-77.0 % Lymphocytes (%) (Auto) 28.1 21.0-51.0 % Monocytes (%) (Auto) 9.5 3.0-13.0 % Eosinophils (%) (Auto) 11.5 H 0.0-8.0 % Basophils (%) (Auto) 0.7 0.0-5.0 % Neutrophils # (Auto) 3.0 1.8-7.7 K/uL Lymphocytes # (Auto) 1.7 1.0-4.8 K/uL Monocytes # (Auto) 0.6 0.1-1.0 K/uL Eosinophils # (Auto) 0.69 0.00-0.70 K/uL Basophils # (Auto) 0.04 0.00-0.20 K/uL Absolute Immature Granulocyte (auto 0.03 0-1 K/uL Nucleated Red Blood Cells 0.0 0.0-0.19 % Sodium Level 145 136-145 mmol/L Potassium Level 3.9 3.5-5.1 mmol/L Chloride Level 110 101-111 mmol/L Carbon Dioxide Level 28 21-32 mmol/L Blood Urea Nitrogen 18 7-18 mg/dL Creatinine 1.5 H 0.5-1.3 mg/dL Glomerular Filtration Rate Calc 48 >90 mL/min Random Glucose 77 70-105 mg/dL Hemoglobin A1c 6.0 4.0-6.0 % Estimated Average Glucose (eAG) 126 70-126 mg/dL Lactic Acid Level 1.2 0.8-2.5 mmol/L Total Calcium 8.4 L 8.5-10.1 mg/dL Magnesium Level 2.10 1.80-2.40 mg/dL Total Bilirubin 0.5 0.2-1.0 mg/dL Direct Bilirubin 0.1 0.0-0.3 mg/dL Aspartate Amino Transf (AST/SGOT) 18 10-37 U/L Alanine Aminotransferase (ALT/SGPT) 20 12-78 U/L Alkaline Phosphatase 37 L 50-136 U/L Ammonia 16 11-32 umol/L Total Creatine Kinase 234 H 21-232 U/L B-Type Natriuretic Peptide 13 0-100 pg/mL Total Protein 5.7 L 6.0-8.3 g/dL Albumin 3.2 L 3.5-5.0 g/dL Procalcitonin < 0.05 L 0.05-0.5 ng/mL Thyroid Stimulating Hormone (TSH) 3.19 0.36-3.74 uIU/mL Free Thyroxine (T4) Direct 1.03 0.76-1.46 ng/dL Free Triiodothyronine (T3) pg/mL 2.01 L 2.18-3.98 pg/mL Urine Color LIGHT-YELLOW YELLOW Urine Appearance CLEAR CLEAR Urine pH 6.5 5.0-8.0 Urine Specific [place] 1.025 1.001-1.031 Urine Protein NEGATIVE NEGATIVE mg/dL Urine Glucose (UA) >=1000 H NEGATIVE mg/dL Urine Ketones NEGATIVE NEGATIVE mg/dL Urine Occult Blood NEGATIVE NEGATIVE Urine Nitrate NEGATIVE NEGATIVE Urine Bilirubin NEGATIVE NEGATIVE mg/dL Urine Urobilinogen 0.2 0.2-1.0 mg/dL Urine Leukocyte Esterase NEGATIVE NEGATIVE Amrit/uL Urine RBC None 0-1 /HPF Urine WBC 0-1 0-1 /HPF Urine Bacteria None None Seen /HPF Troponin I High Sensitivity 10 4-75 ng/L Current Medications Medications (Trade) Dose Ordered Sig/Claudine Route PRN Reason Start Time Stop Time Status Last Admin Dose Admin Acetaminophen (TYLenol 325MG TAB) 650 mg Q4H PRN PO MILD PAIN (1-3) 09/07/24 14:30 10/07/24 14:29 Acetaminophen (TYLenol 325MG TAB) 650 mg Q6H PRN PO MILD PAIN (1-3) 09/07/24 14:30 09/07/24 14:29 DC Acetaminophen (TYLenol 325MG TAB) 650 mg Q6H PRN PO TEMPERATURE GREATER THAN 101.5 09/07/24 14:30 10/07/24 14:29 Al Hydroxide/Mg Hydroxide (MAALox PLUS 30ML) 30 ml Q6H PRN PO INDIGESTION 09/07/24 14:30 10/07/24 14:29 Atorvastatin Calcium (LIPItor 40MG) 80 mg HS PO 09/07/24 21:00 10/07/24 20:59 09/07/24 21:16 80 MG Dextrose (D50w) 50 ml AD PRN IV HYPOGLYCEMIA PROTOCOL 09/07/24 14:30 10/07/24 14:29 Diphenhydramine HCl (BENAdryl INJ) 25 mg Q6H PRN IV SEVERE ITCHING/RASH 09/07/24 14:30 10/07/24 14:29 EZETIMIBE (Zetia) 10 mg DAILY PO 09/08/24 09:00 10/08/24 08:59 09/08/24 09:14 10 MG Famotidine (Pepcid 20mg Vial) 20 mg BID PRN IV NAUSEA/VOMITING 09/07/24 14:30 09/07/24 14:29 DC Famotidine (Pepcid 20mg Vial) 20 mg Q24H IV 09/07/24 21:00 10/07/24 20:59 09/07/24 21:15 20 MG Glucagon (Glucagon 1mg Kit) 1 mg AD PRN IM HYPOGLYCEMIA PROTOCOL 09/07/24 14:30 10/07/24 14:29 Guaifenesin/ Dextromethorphan (RobiTUSSin DM 200/20MG 10ML) 10 ml Q4H PRN PO COUGH 09/07/24 14:30 10/07/24 14:29 Heparin Sodium (Porcine) (HEParin 5,000 UNIT VIAL) 5,000 unit BID SQ 09/07/24 21:00 10/07/24 20:59 09/08/24 09:16 5,000 UNIT Home Med (Home Medication) (Irbesartan 150 MG) PM PO 09/07/24 21:00 10/07/24 20:59 Hydralazine HCl (APRESOLine 20MG INJ) 10 mg Q6H PRN IV For:SBP above 160;DBP above 90 09/07/24 14:30 10/07/24 14:29 Insulin Human Regular (humuLIN R 100 UNIT/ML 3ML) INSULIN SLIDING SCAL... ACHS SQ 09/07/24 16:30 10/07/24 16:29 Ketorolac Tromethamine (toRADol) 15 mg Q8H PRN IV MODERATE PAIN (4-6) 09/07/24 14:30 09/12/24 14:29 Lactulose (Constulose 20gm/ 30ml Udcup) 20 gm BID PRN PO CONSTIPATION 09/07/24 14:30 10/07/24 14:29 Levetiracetam (kepPRA 250 MG TABLET) 250 mg PM PO 09/07/24 21:00 10/07/24 20:59 09/07/24 21:15 250 MG Magnesium Sulfate 50 ml @ 0 mls/hr PROTOCOL PRN IV other 09/07/24 14:30 10/07/24 14:29 Nitroglycerin (Nitrostat) 0.4 mg PROTOCOL PRN SL CHEST PAIN 09/07/24 14:30 10/07/24 14:29 Ondansetron HCl (zoFRAN 4MG INJ) 4 mg Q6H PRN IV NAUSEA/VOMITING 09/07/24 14:30 10/07/24 14:29 Potassium Chloride 100 ml @ 100 mls/hr AD PRN IV POTASSIUM PROTOCOL 09/07/24 14:30 10/07/24 14:29 Potassium Chloride (K-Dur 10meq Sr Tab) 10 meq AD PRN PO POTASSIUM PROTOCOL 09/07/24 15:00 10/07/24 14:29 Potassium Chloride (K-Dur/Klor-Con 20meq) 10 meq AD PRN PO POTASSIUM PROTOCOL 09/07/24 14:30 09/07/24 14:31 DC Potassium Chloride (KCl 10% Elixir 20meq/15ml) 10 meq AD PRN PO POTASSIUM PROTOCOL 09/07/24 14:30 10/07/24 14:29 Sodium Chloride 1,000 ml @ 60 mls/hr [id number] IV 09/07/24 14:30 10/07/24 14:29 09/07/24 18:02 60 MLS/HR Zolpidem Tartrate (AmbIEN) 5 mg HS PRN PO INSOMNIA 09/07/24 14:30 10/07/24 14:29 DIAGNOSTICS / RADIOLOGY: [ ] ASSESSMENT: [ Symptomatic bradycardia requiring pacemaker placement by Cardiology POA Uncontrolled diabetes mellitus type 2 with hypoglycemia POA Uncontrolled hypertension Acute dehydration POA mild rhabdomyolysis CK 280 POA Seizures POA Alzheimer disease POA Hyperlipidemia POA History of COVID-19 11/29/2023 EF 60 65% normal diastolic function 2D echo History of tonsillectomy History of smoking quit more than 10 years ago POA ] PLAN: [ Admit to: [facility]U Consults: [facility]er Antibiotics: None Tests: none at this moment Normal saline at 60 mL/hour NEURO: Minimize central acting medications as possible. Fall Precautions. Well lighted room through the day and minimize interruptions through the night to prevent acute delirium. PULMONARY: Supplemental 02 as needed BiPAP as necessary, for respiratory distress Titrate Fio2 to keep Spo2 > or = 90% DuoNebs and CPT as needed IS hourly while awake for pulmonary hygiene Out of bed to chair as tolerated VAP Bundle Maintain aspiration precautions at all times CARDIOVASCULAR: Follow hemodynamics. Vital signs per facility protocol GI & NUTRITION: Continue nutritional support Aspirations precautions Prokinetic agents and laxatives as needed KIDNEYS & ELECTROLYTES: Strict monitoring of intake and output Daily weights Avoid nephrotoxic agents Monitor electrolytes and replace as needed Goal urine output of 30mL/hr or 0.5mL/kg/hr Medications to be dosed according to renal function. Avoid contrast if possible ENDOCRINE: Maintain blood glucose between 100-180 at all times. Insulin sliding scale for blood glucose management Hypoglycemia and hyperglycemia protocol in place INFECTIOUS DISEASE: Trend temperature, WBC and procalcitonin level Follow cultures, deescalate antibiotics as soon as possible. Panculture if new onset fever HEMATOLOGY & COAGULATION: Monitor H&H. Keep Hgb > 7 Transfuse 1 unit of PRBC for Hgb < 7 Transfuse 1 pack of platelets of platelets < 20, 000 Watch for any signs and symptoms of bleeding SKIN: Pressure ulcer prevention per facility protocol Specialty mattress as needed Treatment plan discussed with patient and family at the bedside Medications to be reconciled once obtained by patient and/or family and available to be reconciled in computer p.r.n. medication for pain nausea and vomiting Questions were answered We will continue to monitor the patient closely Pressure Controller for disposition Rehab: PT/OT GI: PPI DVT: SCD's Code Status: Full Resuscitation Disposition: TBD Prognosis: Guarded] ATTESTATION BY PHYSICIAN I have seen and examined the patient. I reviewed the documentation, medical decision making, and treatment plan as noted by the mid-level provider above. I agree with the findings and plan of care. CAR MODI MD, [facility] Sep 08, 2024 09:45
[2024-09-08 11:00] VITALS: BP 130/67; PULSE 43; RESP 19; TEMP 98.5
--- NOTE | 2024-09-08 11:45 | NUR ---
Order received and spoke to nurse Linnea. Patient remains bradicardic (40's). On hold pending pacemaker. PT team to follow.
--- NOTE | 2024-09-08 13:07 | CONS ---
[facility] CARDIOLOGY CONSULTATION REPORT Cardiology consultation note dictated for Liseth Adkins MD Primary inventory assistant: Bhumi Morrison MD Date Patient Seen: Sep 08, 2024 Requesting Physician: Bhumi Morrison MD Reason for Consultation: Symptomatic bradycardia History of Present Illness: This is a 74-year-old male with a past medical history of hypertension, hyperlipidemia, diabetes mellitus type 2, recurrent asymptomatic bradycardia, benign Lexiscan stress test in 09/2019, negative TTT on 11/24/2022, 2D Echo on 11/29/2022 with an EF of 60-65%, loop recorder implanted for intermittent bradycardia with dizziness, coronary calcium score of 224 in 05/2024, CKD stage III, questionable amyloid related seizures, and Alzheimer's dementia who presented to the ED with complaints of dizziness. Cardiology has been consulted for symptomatic bradycardia. The patient is a poor historian as he has Alzheimer's dementia, HPI obtained from medical and clinic records. The patient was able to state he feels like the room may be spinning at times, intermittent dizziness while standing or sitting, and weakness for an unknown duration. EKG on admission demonstrated sinus bradycard ia with a heart rate of 43 bpm. On continuous telemetry monitoring, the lowest heart rate captured was 37 bpm on 09/07/2024 at 11:48 p.m. while sleeping. He currently denies chest pain, chest pressure, palpitations, dizziness, lightheadedness, shortness or breath, orthopnea, nausea, or vomiting. The patient was recently seen in the clinic on 08/31/2024 and there was plans for the patient to undergo an exercise tolerance test and a carotid duplex. Carotid Doppler on 09/07/2024 was normal with probable subclavian artery stenosis, vertebral artery flow direction is normal but with a pre steal pattern on the left. Past Medical History: As per HPI in summarized below Past Surgical History: Bilateral tendon repair Loop recorder implant Family History: The patient's mother or father did not have a history of heart disease. Social History: The patient lives with his . Habits: The patient denies alcohol, tobacco, or illicit drug use. Home Meds: Jardiance 12.5 mg daily Ezetimibe 10 mg daily Irbesartan 150 mg nightly Levetiracetam 250 mg nightly Rosuvastatin 40 mg q.h.s. Tryptophan 500 mg q.h.s. Current Meds: Current Medications Medications Dose Ordered Sig/Claudine Start Time Stop Time Status Last Admin EZETIMIBE 10 mg DAILY 09/08/24 09:00 10/08/24 08:59 09/08/24 09:14 Levetiracetam 250 mg PM 09/07/24 21:00 10/07/24 20:59 09/07/24 21:15 Home Med (Irbesartan 150 MG) PM 09/07/24 21:00 10/07/24 20:59 Atorvastatin Calcium 80 mg HS 09/07/24 21:00 10/07/24 20:59 09/07/24 21:16 Insulin Human Regular INSULIN SLIDING SCAL... ACHS 09/07/24 16:30 10/07/24 16:29 Dextrose 50 ml AD PRN 09/07/24 14:30 10/07/24 14:29 Glucagon 1 mg AD PRN 09/07/24 14:30 10/07/24 14:29 Potassium Chloride 100 ml @ 100 mls/hr AD PRN 09/07/24 14:30 10/07/24 14:29 Potassium Chloride 10 meq AD PRN 09/07/24 14:30 10/07/24 14:29 Magnesium Sulfate 50 ml @ 0 mls/hr PROTOCOL PRN 09/07/24 14:30 10/07/24 14:29 Diphenhydramine HCl 25 mg Q6H PRN 09/07/24 14:30 10/07/24 14:29 Acetaminophen 650 mg Q6H PRN 09/07/24 14:30 10/07/24 14:29 Acetaminophen 650 mg Q4H PRN 09/07/24 14:30 10/07/24 14:29 Ondansetron HCl 4 mg Q6H PRN 09/07/24 14:30 10/07/24 14:29 Zolpidem Tartrate 5 mg HS PRN 09/07/24 14:30 10/07/24 14:29 Al Hydroxide/Mg Hydroxide 30 ml Q6H PRN 09/07/24 14:30 10/07/24 14:29 Lactulose 20 gm BID PRN 09/07/24 14:30 10/07/24 14:29 Nitroglycerin 0.4 mg PROTOCOL PRN 09/07/24 14:30 10/07/24 14:29 Guaifenesin/ Dextromethorphan 10 ml Q4H PRN 09/07/24 14:30 10/07/24 14:29 Heparin Sodium (Porcine) 5,000 unit BID 09/07/24 21:00 10/07/24 20:59 09/08/24 09:16 Ketorolac Tromethamine 15 mg Q8H PRN 09/07/24 14:30 09/12/24 14:29 Sodium Chloride 1,000 ml @ 60 mls/hr [id number] 09/07/24 14:30 10/07/24 14:29 09/07/24 18:02 Hydralazine HCl 10 mg Q6H PRN 09/07/24 14:30 10/07/24 14:29 Famotidine 20 mg Q24H 09/07/24 21:00 10/07/24 20:59 09/07/24 21:15 Potassium Chloride 10 meq AD PRN 09/07/24 15:00 10/07/24 14:29 Review of Systems: CONST: [No fever, fatigue, or weight changes. EYES: [No recent vision problems. ENT: [No congestion, ear pain, or sore throat. C/V: [No chest pain, palpitations, or edema. RESP: [No cough, congestion, wheezing or shortness of breath. GI: [No abdominal pain, nausea, vomiting, constipation, or diarrhea. : [No incontinence or dysuria. SKIN: [No rash. NEURO: [No headache, focal numbness or weakness, dizziness, or seizures. PSYCH: [No depression or anxiety. HEME: [No abnormal bruising or bleeding. LYMPH: [No swollen glands. Physical Examination: GENERAL: No acute distress. HEAD: Normal with no signs of head trauma. EYES: PERRLA, EOMI, conjunctiva and sclera normal. ENT: Hearing grossly intact, normal oropharynx. NECK: Supple without JVD. There is no tenderness, lymphadenopathy, or masses. No thyromegaly. Normal carotid upstrokes without bruits. LUNGS: Clear breath sounds bilaterally. No wheezes, or rhonchi. HEART: Normal rate and rhythm. Normal S1 and S2. 2/6 YANDEL at the Lt 5th MCL VASC: Bilateral DP pulses +2 bilaterally. ABD: Bowel sounds normal, soft, nontender, no masses, no organomegaly. No audible bruits. : Not examined LYMPH: No lymphadenopathy noted. EXT: No clubbing, cyanosis or edema. SKIN: No rashes or lesions noted. NEURO: Awake, alert, and oriented x3. No focal sensory or strength deficits noted. Vital Signs (last 8hr) Date Time Temp Pulse Resp B/P (MAP) Pulse Ox O2 Delivery O2 Flow Rate FiO2 09/08/24 07:00 98.4 46 19 134/70 99 Room Air Laboratory: Hematology Labs: Test 09/08/24 03:19 Range/Units White Blood Count 6.0 # 4.8-10.8 K/uL Red Blood Count 4.33 L 4.50-6.20 MIL/uL Hemoglobin 12.8 L 14.0-18.0 g/dL Hematocrit 37.5 L 42-54 % Mean Corpuscular Volume 86.6 79-99 fL Mean Corpuscular Hemoglobin 29.6 27.0-33.0 pg Mean Corpuscular Hemoglobin Concent 34.1 32.0-36.0 g/dL Red Cell Distribution Width 12.0 11.0-15.5 % Platelet Count 139 130-400 K/uL Mean Platelet Volume 10.7 H 7.5-10.5 fL Immature Granulocyte % (Auto) 0.5 0-1 % Neutrophils (%) (Auto) 49.7 40.0-77.0 % Lymphocytes (%) (Auto) 28.1 21.0-51.0 % Monocytes (%) (Auto) 9.5 3.0-13.0 % Eosinophils (%) (Auto) 11.5 H 0.0-8.0 % Basophils (%) (Auto) 0.7 0.0-5.0 % Neutrophils # (Auto) 3.0 1.8-7.7 K/uL Lymphocytes # (Auto) 1.7 1.0-4.8 K/uL Monocytes # (Auto) 0.6 0.1-1.0 K/uL Eosinophils # (Auto) 0.69 0.00-0.70 K/uL Basophils # (Auto) 0.04 0.00-0.20 K/uL Absolute Immature Granulocyte (auto 0.03 0-1 K/uL Nucleated Red Blood Cells 0.0 0.0-0.19 % Chemistry Labs: Test 09/08/24 10:57 09/08/24 03:19 09/07/24 10:44 Range/Units Whole Blood Glucose 117 H 70-110 MG/DL Sodium Level 145 136-145 mmol/L Potassium Level 3.9 3.5-5.1 mmol/L Chloride Level 110 101-111 mmol/L Carbon Dioxide Level 28 21-32 mmol/L Blood Urea Nitrogen 18 7-18 mg/dL Creatinine 1.5 H 0.5-1.3 mg/dL Glomerular Filtration Rate Calc 48 >90 mL/min Random Glucose 77 70-105 mg/dL Hemoglobin A1c 6.0 4.0-6.0 % Estimated Average Glucose (eAG) 126 70-126 mg/dL Lactic Acid Level 1.2 0.8-2.5 mmol/L Total Calcium 8.4 L 8.5-10.1 mg/dL Magnesium Level 2.10 1.80-2.40 mg/dL Total Bilirubin 0.5 0.2-1.0 mg/dL Direct Bilirubin 0.1 0.0-0.3 mg/dL Aspartate Amino Transf (AST/SGOT) 18 10-37 U/L Alanine Aminotransferase (ALT/SGPT) 20 12-78 U/L Alkaline Phosphatase 37 L 50-136 U/L Ammonia 16 11-32 umol/L Total Creatine Kinase 234 H 21-232 U/L B-Type Natriuretic Peptide 13 0-100 pg/mL Total Protein 5.7 L 6.0-8.3 g/dL Albumin 3.2 L 3.5-5.0 g/dL Procalcitonin < 0.05 L 0.05-0.5 ng/mL Thyroid Stimulating Hormone (TSH) 3.19 0.36-3.74 uIU/mL Free Thyroxine (T4) Direct 1.03 0.76-1.46 ng/dL Free Triiodothyronine (T3) pg/mL 2.01 L 2.18-3.98 pg/mL Troponin I High Sensitivity 10 4-75 ng/L Diagnostics / Radiology: Impression and Plan: Bradycardia Vertigo HTN HLD DM type II Hx of recurrent asymptomatic bradycardia Benign Lexiscan stress test in 09/2019 Negative TTT on 11/24/2022 2D Echo on 11/29/2022 with an EF of 60-65% Loop recorder implanted for intermittent bradycardia with dizziness Coronary calcium score of 224 in 05/2024 CKD stage III 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 while sleeping Carotid Doppler on 09/07/2024 was normal with probable subclavian artery stenosis, vertebral artery flow direction is normal but with a pre steal pattern on the left Considering treadmill test to evaluate chronotropic response to activity. ATTESTATION BY PHYSICIAN I have seen and examined the patient, reviewed the above documentation, participated in medical decision making, made necessary modifications, and agree with the treatment plan as documented by my mid-level provider above. I am very skeptical of the question that bradycardia is contributing to the patient's symptoms. The symptoms sound more like vertigo than cerebral hypoperfusion. Previous tilt-table test did not demonstrate a cause for symptoms. We will attempt to interrogate the loop recorder. MD BREA Mendez [facility] Sep 08, 2024 13:07 LISETH ADKINS MD Sep 08, 2024 15:20
[2024-09-08 16:00] VITALS: BP 146/66; PULSE 43; RESP 18; TEMP 97.9
--- NOTE | 2024-09-08 16:12 | DS ---
Discharge Summary Hospital Course Summary: Patient initially admitted to the hospital September 07, 2024 with the following history of the present illness: Patient was years diabetes, department for evaluation lightheadedness. Patient stated that for the past few months he has been feeling very weak and his ADLs has worsened recently. He denied any chest pain, nausea, vomiting or any discomfort otherwise. Patient was going to have a stress test and carotid ultrasound done by Dr. Morrison as outpatient but he had difficulty coordinating these radiology test. Patient was sent by Dr. Morrison for history of bradycardia possible pacemaker insertion. Most recent vital signs temperature 98.8 pulse 42 respiration 18 blood pressure 143/62 patient is on room air saturating 98%. Sodium 144 potassium 3.6 CO2 32 BUN 19 creatinine 1.6 GFR 44 CK 280 troponin negative x1 BNP 12. Urinalysis negative for leukocytosis or nitrates. WBC 8.8 hemoglobin 14.7 hematocrit 42.8 platelets 143. Chest x-ray 09/07/[address] 09/07/2020 negative. The patient was admitted to the progressive care unit, kept on telemetry monitoring, he remained hemodynamically stable. Carotid Doppler was done, reported as follows: US CAROTID DUPLEX REASON: dizziness, lightheaded TECHNIQUE: Exam was performed using spectral analysis and color flow imaging. FINDINGS: Color flow Doppler ultrasound shows normal-appearing bifurcations. There is no anatomic evidence of significant focal narrowing. Flow velocities and velocity ratios appear normal throughout. There is antegrade flow in both vertebral arteries. There is elevated flow velocity in the left subclavian artery at 300 cm/s suggesting stenosis. RIGHT CAROTID: CCA: 80 cm/sec ICA: 82 cm/sec Ratio: ICA/CCA: 1 ECA: 131 cm/sec Vertebral artery: 49 cm/sec LEFT CAROTID: CCA: 110 cm/sec ICA: 107 cm/sec Ratio: ICA/CCA: 1.0 ECA: 123 cm/sec Vertebral artery: 61 cm/sec IMPRESSION: 1. Normal bilateral carotid Doppler ultrasound. 2. Probable subclavian artery stenosis, vertebral artery flow direction is normal but with a presteal pattern on the left. Today the patient is hemodynamically stable, alert oriented x3, no dizziness, no headache, no chest pain, no shortness a breath, no nausea, no vomiting, no abdominal pain. Okay for the patient to be discharged home from cardiology standpoint, recommended to be seen by ENT, this can be done as an outpatient. Results of carotid Doppler reviewed and discussed in detail with the patient, all questions answered, printed copy provided to the patient. Vp Analysis(s): Cardiology Assessment/Plan: Final diagnosis Symptomatic bradycardia requiring pacemaker placement by Cardiology POA Uncontrolled diabetes mellitus type 2 with hypoglycemia POA Uncontrolled hypertension Acute dehydration POA mild rhabdomyolysis CK 280 POA Seizures POA Alzheimer disease POA Hyperlipidemia POA History of COVID-19 11/29/2023 EF 60 65% normal diastolic function 2D echo History of tonsillectomy History of smoking quit more than 10 years ago POA Possible left subclavian artery stenosis, POA Discharge Instructions: The patient to follow up with his PCP to get a referral to be evaluated by ENT per Cardiology recommendations. Findings of carotid Doppler showing probable stenosis left subclavian artery discussed in detail with the patient, all questions answered. Discussed also with the patient's it applications developer Dr. Ericka bear, patient can be seen as an outpatient. Patient was advised to return to the hospital if his condition changes. Patient agreed with plan and understood the information provided. Home Medications: Reported Medications Rosuvastatin Calcium (Rosuvastatin Calcium) 40 Mg Tablet, 40 MG PO HS, TAB 09/07/24 Irbesartan (Irbesartan) 150 Mg Tablet, 150 MG PO PM, TAB 09/07/24 Levetiracetam (Levetiracetam) 250 Mg Tablet, 250 MG PO PM, TAB 09/07/24 Ezetimibe (Ezetimibe) 10 Mg Tablet, 10 MG PO DAILY, TAB 09/07/24 Empagliflozin (Jardiance) 10 Mg Tablet, 12.5 MG PO DAILY, TAB 09/07/24 Tryptophan (l-Tryptophan) 500 Mg Capsule, 1000 MG PO HS, CAP 09/07/24 Tryptophan (l-Tryptophan) 500 Mg Capsule, 1000 MG PO DAILY, CAP 09/07/24 Time spent arranging discharge: 31-60 minutes CAR MODI MD Sep 08, 2024 16:12
--- NOTE | 2024-09-08 17:00 | NUR ---
DISCHARGED TO HOME, INSTRUCTIONS REVIEWED WITH PATIENT AND . WHEELED TO CAR.
== END 2024-09-08 17:00 | disposition home or self-care (01) ==
LOC: EDH 10:26 → EDHIP 12:04 → INTOOBSV 12:04 → 2DH 19:12
PROVIDERS: ADMIT Internal Medicine; ATTEND Internal Medicine
DX: I12.9 Hypertensive chronic kidney disease with stage 1 through stage 4 chronic kidney disease, or unspecified chronic kidney disease (principal); E11.22 Type 2 diabetes mellitus with diabetic chronic kidney disease; N18.30 Chronic kidney disease, stage 3 unspecified; R00.1 Bradycardia, unspecified; G40.909 Epilepsy, unspecified, not intractable, without status epilepticus; E11.649 Type 2 diabetes mellitus with hypoglycemia without coma; H81.10 Benign paroxysmal vertigo, unspecified ear; G30.9 Alzheimer's disease, unspecified; I25.10 Atherosclerotic heart disease of native coronary artery without angina pectoris; F02.80 Dementia in other diseases classified elsewhere, unspecified severity, without behavioral disturbance, psychotic disturbance, mood disturbance, and anxiety; E86.0 Dehydration; E78.00 Pure hypercholesterolemia, unspecified; M62.82 Rhabdomyolysis; Z79.899 Other long term (current) drug therapy; Z87.891 Personal history of nicotine dependence; Z95.0 Presence of cardiac pacemaker; Z86.16 Personal history of COVID-19
CPT/HCPCS: 99285; 93880; 96361 ×4; 96374; 70450; 71045; 96372 ×2; 82550 ×2; 84484; 80048 ×2; 83880 ×2; 85025 ×2; 82948 ×5; 81001; 36415 ×2; 93005; 83036; 84443; 80076; 83735; 82140; 84439; 83605; 84481; 84145; J3490; J7030; J1644 ×2; G0378

== ENCOUNTER 2024-10-13 08:59 | Day surgery (SDC) | payer MEDICARE ==
[2024-10-11 11:21] VITALS: BP 160/56; PULSE 45; RESP 18; TEMP 97.7
[2024-10-11 11:33] LABS: BASOPHILS # (AUTO) 0.05 K/uL (0.00-0.20); BASOPHILS % (AUTO) 0.6 % (0.0-5.0); EOSINOPHILS # (AUTO) 0.58 K/uL (0.00-0.70); EOSINOPHILS % (AUTO) 7.2 % (0.0-8.0); HEMATOCRIT 44.9 % (42-54); IMMATURE GRANULOCYTE ABSOLUTE 0.06 K/uL (0-1); LYMPHOCYTES # (AUTO) 1.4 K/uL (1.0-4.8); LYMPHOCYTES % (AUTO) 16.9 % (21.0-51.0); MEAN CORPUSCULAR HEMOGLOBIN 29.9 pg (27.0-33.0); MEAN CORPUSCULAR HGB CONC 34.1 g/dL (32.0-36.0); MEAN CORPUSCULAR VOLUME 87.9 fL (79-99); MONOCYTES # (AUTO) 0.7 K/uL (0.1-1.0); MONOCYTES % (AUTO) 9.2 % (3.0-13.0); NEUTROPHILS # (AUTO) 5.2 K/uL (1.8-7.7); NEUTROPHILS % (AUTO) 65.4 % (40.0-77.0); PLATELET COUNT (AUTO) 142 K/uL (130-400); RED BLOOD CELL COUNT(AUTO) 5.11 MIL/uL (4.50-6.20); RED CELL DISTRIBUTION WIDTH 11.8 % (11.0-15.5)
[2024-10-11 11:40] LABS: CREATININE 1.7 mg/dL (0.5-1.3); POTASSIUM 4.6 mmol/L (3.5-5.1)
[2024-10-11 12:06] LABS: INR 0.96 (0.85-1.15); PROTHROMBIN TIME 10.8 SEC (9.6-11.6)
[2024-10-11 12:08] LABS: PARTIAL THROMBOPLASTIN TIME 25.2 SEC (26.3-35.5)
--- NOTE | 2024-10-11 13:50 | EKG ---
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
--- NOTE | 2024-10-12 11:46 | NUR ---
REPORT REPORTED BUN AND CREAT TO TERRI AMARAL AUDIOLOGY ASSISTANT. RECEIVED ORDERS TO REPEAT BMP IN AM AND INSTRUCT PT TO HYDRATE WELL TONIGHT. PT NOTIFIED
[~2024-10-13] VITALS: Ht 182.9 cm; Wt 75.5 kg
[2024-10-13] VITALS (12 sets, daily range): BP systolic 124–145; BP diastolic 64–87; PULSE 52–61; RESP 16–18; TEMP 97.2–97.9
[~2024-10-13 08:59] MED LIST: EMPA10TA PO; EZET10TA48 PO; IRBE150T34 PO; LEVE250T2 PO; ROSU40TA88 PO; [UNRECOGNIZED DRUG - CODE] PO
[2024-10-13 09:39] LABS: CREATININE 1.7 mg/dL (0.5-1.3); POTASSIUM 3.8 mmol/L (3.5-5.1)
[2024-10-13] MEDS: 0.9%NACL 1000ML 1,000 ML IV SCH (10:52)
[2024-10-13] MEDS ORDERED: MEPERIDINE-PF 25 MG/ML SYG ONE ×2 (11:07→11:38)
[2024-10-13] MEDS ORDERED: ceFAZolin SODIUM 1 GM VIAL ONE (11:07)
[2024-10-13] MEDS ORDERED: LIDOCAINE HCL 1% MDV 50ML VIAL ONE (11:07)
[2024-10-13] MEDS ORDERED: IOHEXOL-350 50ML VIAL IV ONE (11:08)
[2024-10-13] MEDS ORDERED: MIDAZOLAM HCL 1 MG/ML 2ML VIAL ONE ×2 (11:08→11:38)
[2024-10-13] MEDS ORDERED: BUPIvacaine/PF 0.25% 30ML VIAL IJ ONE (11:08)
[2024-10-13] MEDS ORDERED: ondanSETRON 4MG INJ IV PRN (13:00)
[2024-10-13] MEDS ORDERED: acetaMINOPHEN WITH coDEINE 1 TAB TAB PO PRN (13:00)
--- NOTE | 2024-10-13 13:43 | EKG ---
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
[2024-10-13] MEDS: ceFAZolin SODIUM 1 GM VIAL ONE (15:20)
[2024-10-13] MEDS: acetaMINOPHEN WITH coDEINE 1 TAB TAB PO PRN (15:29)
[2024-10-13] MEDS ORDERED: INSULIN humuLIN R 100 UNIT/ML 3ML SQ SCH (16:30)
--- NOTE | 2024-10-13 18:43 | HMCIMG ---
CHEST 1VW HISTORY: Pacemaker insertion COMPARISON: 09/07/2024 FINDINGS: A frontal projection of the chest was obtained. No acute pulmonary infiltrates is seen. The heart is borderline enlarged. There are mild interstitial fibrosis. Pacemaker is seen entering from the left. No pneumothorax is seen. Degenerative changes are seen. Aortic calcifications are seen. IMPRESSION: 1. No acute pulmonary infiltrate is seen. No pneumothorax.
[2024-10-13] MEDS ORDERED: ceFAZolin SODIUM 1 GM VIAL IVPB ONE (19:00)
[2024-10-13] MEDS: ceFAZolin SODIUM 1 GM VIAL IVPB SCH (19:03)
--- NOTE | 2024-10-13 19:07 | NUR ---
chest xray reported to tram edenp ok to dc pt home
--- NOTE | 2024-10-13 19:24 | NUR ---
pt out daypt via [facility] without incident sling in place to take home
== END 2024-10-13 19:25 | disposition home or self-care (01) ==
LOC: DAH 08:59
PROVIDERS: ATTEND Internal Medicine Cardiovascular Disease
DX: I49.5 Sick sinus syndrome (principal); I48.0 Paroxysmal atrial fibrillation; I12.9 Hypertensive chronic kidney disease with stage 1 through stage 4 chronic kidney disease, or unspecified chronic kidney disease; E11.22 Type 2 diabetes mellitus with diabetic chronic kidney disease; N18.30 Chronic kidney disease, stage 3 unspecified; I45.10 Unspecified right bundle-branch block; E78.5 Hyperlipidemia, unspecified; Z98.890 Other specified postprocedural states; Z82.49 Family history of ischemic heart disease and other diseases of the circulatory system; Z79.01 Long term (current) use of anticoagulants; Z79.82 Long term (current) use of aspirin; Z79.899 Other long term (current) drug therapy
CPT/HCPCS: 80048 ×2; 85025; 85610; 85730; 36415 ×2; 93005 ×2; 33208; 82948 ×2; 71045; C1769; C1785; C1898 ×2; C1894; J0690 ×2; J7030; J0665; J2250 ×2; J2175 ×2; J3490; Q9967; A4215; A4222; A4221; A4663; A4216; A4606; A4223 ×3; 99156; 99157